=== PATIENT | male | born 1990 | race Caucasian/White ===

== ENCOUNTER 2017-02-06 08:58 | Emergency (ER) | payer SELFPAY ==
[2017-02-06 10:10] LABS: HEMOGLOBIN 15.6 gm/dl (14.0-17.5); RED BLOOD COUNT 5.48 M/UL (4.20-5.50); WHITE BLOOD COUNT 5.5 K/UL (4.5-11.0)
[2017-02-06 10:46] LABS: BUN/CREATININE RATIO 10 (0-10)
== END 2017-02-06 12:27 | disposition home or self-care (01) ==
LOC: ER1 08:58
PROVIDERS: Emergency Medicine
DX: R41.0 Disorientation, unspecified (principal); R53.83 Other fatigue; T42.4X5A Adverse effect of benzodiazepines, initial encounter
CPT/HCPCS: 36415; 71010; 80053; 80307; 82550; 82553; 83874; 84484; 85025; 93005; 99285; G0480